=== PATIENT | male | born 1940 | race Caucasian/White ===

== ENCOUNTER 2022-12-08 09:45 | Outpatient (CLI) | payer MEDICARE | END 2022-12-08 09:46 | disposition home or self-care (01) | LOC: TBSIIMAG 09:45 | PROVIDERS: ATTEND Neurological Surgery | DX: M48.062 Spinal stenosis, lumbar region with neurogenic claudication (principal); M25.78 Osteophyte, vertebrae; I70.0 Atherosclerosis of aorta; M47.816 Spondylosis without myelopathy or radiculopathy, lumbar region; M47.817 Spondylosis without myelopathy or radiculopathy, lumbosacral region | CPT/HCPCS: 72120 ==

== ENCOUNTER 2023-01-09 13:57 | Outpatient (CLI) | payer MEDICARE, OTHER ==
[2023-01-09 15:08] LABS: Mean Corpuscular HGB CONC 33.1 g/dL (32.0-36.0); Mean Corpuscular Hemoglobin 30.7 pg (27.0-33.0); Mean Corpuscular Volume 92.9 fl (81.2-95.1); Mean Platelet Volume 9.3 fl (7.4-10.4); Platelet Count 172 10x3/uL (150-450); RBC Distribution Width 12.8 % (11.5-14.5); Red Blood Cell (RBC) Count 5.21 10x6/uL (4.32-5.72); White Blood Cell (WBC) Count 5.5 10x3/uL (3.5-10.5)
[2023-01-09 15:15] LABS: PTT 32.5 sec (22.0-33.0); Prothrombin Time 10.5 sec (9.5-12.1)
[2023-01-09 15:21] LABS: Anion Gap 15 mmol/L (10-20); BUN (Urea Nitrogen) 23 mg/dL (8.4-25.7); Calc. Creatinine Clearance 0 mL/min (70-130); Calcium 9.5 mg/dL (7.8-10.44); Carbon Dioxide 24 mmol/L (23-31); Chloride 104 mmol/L (98-107); Estimated GFR 54; Glucose 122 mg/dL (83-110); Potassium 4.2 mmol/L (3.5-5.1); Sodium 139 mmol/L (136-145)
== END 2023-01-09 13:58 | disposition home or self-care (01) ==
LOC: LABBT 13:57
PROVIDERS: ATTEND Neurological Surgery
DX: Z01.818 Encounter for other preprocedural examination (principal); M48.061 Spinal stenosis, lumbar region without neurogenic claudication
CPT/HCPCS: 80048; 85027; 85610; 85730; 93005; 93010

== ENCOUNTER 2023-01-12 10:19 | Observation (INO) | payer MEDICARE ==
[2023-01-11 11:46] VITALS: BMI 28.8
[2023-01-12] MEDS ORDERED: Neomycin-Polymyxin 1 ML AMP ONE (11:13)
[2023-01-12] MEDS ORDERED: Thrombin 5000 UNITS/5 ML VIAL ONE (11:13)
[2023-01-12] MEDS ORDERED: Bupivacaine HCl 0.5%/Epinephrine 1:200,000/PF 30 ml Vial ONE (11:13)
[2023-01-12] MEDS ORDERED: Vancomycin 1 GM VIAL ONE (11:13)
[2023-01-12] MEDS ORDERED: Morphine 2 MG/ML VIAL SLOW IVP PRN (12:11)
[2023-01-12] MEDS ORDERED: HYDROcodone/Acetaminophen 7.5/325 mg Tablet PO PRN (12:11)
[2023-01-12] MEDS ORDERED: Acetaminophen/Codeine 30-300mg Tablet PO PRN (12:11)
[2023-01-12] MEDS ORDERED: Acetaminophen 325 MG TAB PO PRN (12:11)
[2023-01-12] MEDS ORDERED: diphenhydrAMINE 50 MG/ML VIAL IVP PRN (12:11)
[2023-01-12] MEDS ORDERED: Ondansetron PF 4 MG/2 ML Vial IVP PRN (12:11)
[2023-01-12] MEDS ORDERED: CEFAZOLIN 2 GM VIAL ONE (12:13)
[2023-01-12] MEDS ORDERED: Sodium Chloride 0.9% 100 ML ONE (12:13)
[2023-01-12] MEDS ORDERED: Fentanyl 250 MCG/5 ML VIAL ONE (12:17)
[2023-01-12] MEDS ORDERED: GLYCOPYRROLATE/PF 0.2 MG/ML VIAL ONE (12:29)
[2023-01-12] MEDS ORDERED: Rocuronium Bromide 10 MG/ML (10ML VIAL) ONE (12:29)
[2023-01-12] MEDS ORDERED: Ondansetron PF 4 MG/2 ML Vial ONE (12:29)
[2023-01-12] MEDS ORDERED: Phenylephrine 10 MG/ML VIAL ONE (12:29)
[2023-01-12] MEDS ORDERED: NEOSTIGMINE 3 MG/3 ML SYR 3 MG/3 ML SYRINGE ONE (12:29)
[2023-01-12] MEDS ORDERED: Dexamethasone 20 MG/5 ML VIAL ONE (12:29)
[2023-01-12] MEDS ORDERED: Lidocaine 1% PF 5 ML VIAL ONE (12:29)
[2023-01-12] MEDS ORDERED: ePHEDrine Sulfate 50 MG/10 ML VIAL ONE (12:29)
[2023-01-12] MEDS ORDERED: PROPOFOL 200 MG/20 ML VIAL ONE (12:29)
[2023-01-12] MEDS ORDERED: Rocuronium Bromide 50 MG/5 ML VIAL ONE (13:36)
[2023-01-12] MEDS ORDERED: Ondansetron HCl/PF 4 MG/2 ML Vial IVP PRN (18:06)
[2023-01-12] MEDS ORDERED: HYDROmorphone 2 MG/ML VIAL SLOW IVP PRN (18:06)
[2023-01-12] MEDS ORDERED: Morphine Sulfate 2 MG/ML SYRINGE SLOW IVP PRN (18:06)
[2023-01-12] MEDS ORDERED: HumaLOG 300 UNITS/3 ML VIAL SC PRN (18:11)
[2023-01-12] MEDS ORDERED: Dextrose 5% in Water 1,000 ML IV PRN (18:11)
[2023-01-12] MEDS ORDERED: Dextrose 50% Abboject 50 ML SYRINGE SLOW IVP PRN (18:11)
[2023-01-12] MEDS ORDERED: fentaNYL 50 mcg/mL 1 mL Vial ONE ×2 (18:13→18:32)
[2023-01-12] MEDS ORDERED: tiZANidine HCl 4 MG TAB PO PRN (18:14)
[2023-01-12] MEDS ORDERED: HYDROmorphone 0.5 MG/0.5 ML SYRINGE ONE (18:50)
[2023-01-12] MEDS ORDERED: HumaLOG 300 UNITS/3 ML VIAL ONE (19:02)
[2023-01-12] MEDS: CEFAZOLIN 2 GM in Sodium Chloride 0.9% 100 ML IVPB SCH (20:49)
[2023-01-12] MEDS: Sodium Chloride 0.9% 1,000 ML IV SCH (20:50)
[2023-01-12] MEDS: Gabapentin 300 MG CAP PO SCH (20:52)
[2023-01-12] MEDS ORDERED: Melatonin 3 MG TAB PO SCH (21:00)
[2023-01-12] MEDS ORDERED: CEFAZOLIN 2 GM in Sodium Chloride 0.9% 100 ML IVPB SCH (22:00)
[2023-01-13] MEDS: HYDROcodone/Acetaminophen 10/325 mg Tablet PO PRN ×2 (00:01→13:33)
[2023-01-13] MEDS: Sodium Chloride 0.9% 1,000 ML IV SCH ×2 (03:10→16:53)
[2023-01-13] MEDS: CEFAZOLIN 2 GM in Sodium Chloride 0.9% 100 ML IVPB SCH (04:11)
[2023-01-13] MEDS ORDERED: Tamsulosin HCl 0.4 MG CAP PO SCH (06:00)
[2023-01-13 08:01] VITALS: TEMP 98.5
[2023-01-13] MEDS: Gabapentin 300 MG CAP PO SCH ×2 (08:38→16:09)
[2023-01-13] MEDS ORDERED: Sertraline 100 MG TAB PO SCH (09:00)
[2023-01-13] MEDS ORDERED: Amlodipine 5 MG TAB PO SCH (09:00)
[2023-01-13 12:09] VITALS: BP 121/74
== END 2023-01-13 16:58 | disposition home or self-care (01) ==
LOC: SDC 10:19 → T4-B 12:14
PROVIDERS: ADMIT Neurological Surgery; ATTEND Neurological Surgery
PROC: 01NB0ZZ Release Lumbar Nerve, Open Approach (ICD-10-PCS; principal; 2023-01-12)
PROC: 01NR0ZZ Release Sacral Nerve, Open Approach (ICD-10-PCS; 2023-01-12)
DX: M48.062 Spinal stenosis, lumbar region with neurogenic claudication (principal); M48.07 Spinal stenosis, lumbosacral region; M51.16 Intervertebral disc disorders with radiculopathy, lumbar region; M21.371 Foot drop, right foot; E78.00 Pure hypercholesterolemia, unspecified; I12.9 Hypertensive chronic kidney disease with stage 1 through stage 4 chronic kidney disease, or unspecified chronic kidney disease; E11.22 Type 2 diabetes mellitus with diabetic chronic kidney disease; N18.9 Chronic kidney disease, unspecified; G89.4 Chronic pain syndrome; N40.0 Benign prostatic hyperplasia without lower urinary tract symptoms; Z87.891 Personal history of nicotine dependence; Z79.84 Long term (current) use of oral hypoglycemic drugs; Z79.899 Other long term (current) drug therapy
CPT/HCPCS: 63047; 63048 ×3; 82962 ×2; 97110; 97116; J3010; 36416; 96374; 96376; G0378; J1170; J1815; J3370; J3490; J7050